=== PATIENT | female | born 1975 | race Caucasian/White ===

== ENCOUNTER 2019-04-10 06:57 | Day surgery (SDC) | payer OTHER ==
[~2019-04-10 06:57] MED LIST: Lidocaine 1% with EPINEPHrine 1:100,000 50 ML MDV ONE
[2019-04-10] MEDS ORDERED: Dextrose 5%-Lactated Ringers 1,000 ML IV SCH (07:15)
[2019-04-10] MEDS ORDERED: Lidocaine 0.5% 50 ML SDV ONE (07:16)
[2019-04-10] MEDS ORDERED: Propofol 200 MG/20 ML SDV ONE (07:16)
[2019-04-10] MEDS ORDERED: Midazolam 1 MG/ML 2 ML SDV ONE (07:17)
[2019-04-10] MEDS ORDERED: fentaNYL 100 MCG/2 ML SDV ONE (07:17)
[2019-04-10] MEDS ORDERED: ceFAZolin 2 GM in Sodium Chloride 0.9% 50 ML IV ONE (08:00)
[2019-04-10] MEDS ORDERED: Lidocaine 1% 4 ML ONE (08:05)
[2019-04-10] MEDS ORDERED: Acetaminophen/HYDROcodone 325-5 MG Tab PO ONE (09:32)
--- NOTE | 2019-04-22 15:55 | OR ---
DATE OF PROCEDURE: 04/10/2019 SURGEON: Mir Arellano MD PREOPERATIVE DIAGNOSIS: Left carpal tunnel syndrome. POSTOPERATIVE DIAGNOSES: 1. Left carpal tunnel syndrome. 2. Subfascial lipoma located within the left carpal tunnel. PROCEDURE PERFORMED: 1. Left carpal tunnel release (19867). 2. Excision of subfascial lipoma located within the carpal tunnel (53209). ANESTHESIA: IV block plus sedation. MUSHROOM FARMER: Hubert Huber MS-3. INDICATION FOR PROCEDURE: This is a 43-year-old female presenting with left carpal tunnel syndrome. Plan is to proceed with left carpal tunnel release. Potential risks including bleeding, infection, injury to the median nerve and/or its branches, and possible incomplete relief of symptoms were all reviewed with the patient and she wishes to proceed. DETAILS OF PROCEDURE: The patient was taken to the operating room and placed in a supine position. IV sedation was administered after a standard IV block was placed affecting the left forearm and hand, and those areas were prepped and draped. A standard carpal tunnel incision was then made and carried down through the skin and subcutaneous tissue. The transverse carpal ligament was then identified and divided through the length of the carpal tunnel ligament extending on to the palm of the hand until there was complete release of pressure on the median nerve. During the course of the dissection, the elongated lipoma was located within the carpal tunnel, and this was excised and measured 3.2 cm in dimension. At that point, no further problems were noted. The subcutaneous tissue was approximated with 4- 0 Vicryl stitch and skin with 5-0 Prolene stitch. Dressing applied. The patient was taken to the recovery room in satisfactory condition. There were no evident complications. Mir Arellano MD /[id number]
== END 2019-04-10 10:50 | disposition home or self-care (01) ==
LOC: JP.SDS 06:57
PROVIDERS: ATTEND Surgery
DX: G56.02 Carpal tunnel syndrome, left upper limb (principal); D17.22 Benign lipomatous neoplasm of skin and subcutaneous tissue of left arm; I10 Essential (primary) hypertension; E66.09 Other obesity due to excess calories; Z68.42 Body mass index [BMI] 45.0-49.9, adult
CPT/HCPCS: 25073; 64721; 88304; A9270; J0690; J2001; J2250; J2704; J3010; J7042; J7050; J7121

== ENCOUNTER 2019-05-01 09:07 | Day surgery (SDC) | payer OTHER ==
[~2019-05-01 09:07] MED LIST changes: +Dextrose 5%-Lactated Ringers 1,000 ML IV SCH; +ceFAZolin 2 GM in Sodium Chloride 0.9% 100 ML IV ONE; +ceFAZolin 2 GM in Sodium Chloride 0.9% 50 ML IV ONE
[2019-05-01] MEDS ORDERED: Lidocaine 0.5% 50 ML SDV ONE (10:26)
[2019-05-01] MEDS ORDERED: fentaNYL 100 MCG/2 ML SDV ONE (10:26)
[2019-05-01] MEDS ORDERED: Propofol 200 MG/20 ML SDV ONE ×2 (10:26→12:20)
[2019-05-01] MEDS ORDERED: Midazolam 1 MG/ML 2 ML SDV ONE (10:26)
[2019-05-01] MEDS ORDERED: Ketorolac 60 MG/2 ML SDV ONE (12:16)
[2019-05-01] MEDS ORDERED: hydrOXYzine HCL 100 MG/2 ML SDV IM ONE (12:54)
--- NOTE | 2019-05-10 14:36 | OR ---
DATE OF PROCEDURE: 05/01/2019 SURGEON: Mir Arellano MD PREOPERATIVE DIAGNOSIS: Right carpal tunnel syndrome. POSTOPERATIVE DIAGNOSIS: Right carpal tunnel syndrome. OPERATIVE PROCEDURE: Right carpal tunnel release (66521). ANESTHESIA: IV block plus sedation. INDICATION FOR PROCEDURE: This is a 43-year-old female presenting with bilateral carpal tunnel syndrome, who presents now for a right carpal tunnel release. Potential risks of procedure were reviewed including bleeding, infection, injury to the median nerve and/or its branches, possible incomplete relief of symptoms were all gone over, and the patient wishes to proceed. DETAILS OF PROCEDURE: The patient was taken to the operating room and placed in a supine position. IV block was placed affecting the right forearm and the hand, and those areas were prepped and draped. A standard carpal tunnel incision was made and carried down through the skin and subcutaneous tissue. The transverse carpal ligament was identified and maintaining ulnar orientation with regard to the underlying median nerve, the carpal ligament was divided further for its length including well onto the palm of the hand until there was complete relief of any pressure over the carpal tunnel. This was divided somewhat proximally underneath the skin as well and at that point, the median nerve was inspected and found to be intact. The subdermal tissue was then approximated with some 4-0 Vicryl stitch and the skin with a 5-0 Prolene skin stitch. Dressing was applied. The patient was taken to the recovery room in satisfactory condition. Mir Arellano MD /[id number]
== END 2019-05-01 15:28 | disposition home or self-care (01) ==
LOC: JP.SDS 09:07
PROVIDERS: ATTEND Surgery
DX: G56.01 Carpal tunnel syndrome, right upper limb (principal); I10 Essential (primary) hypertension
CPT/HCPCS: 64721; J0690; J1885; J2001; J2250; J2704; J3010; J3410; J7050; J7121